=== PATIENT | female | born 1980 | race Caucasian/White ===

== ENCOUNTER 2019-07-10 11:00 | Emergency (ER) | payer OTHER ==
[2019-07-10 11:26] LABS: BILIRUBIN,URINE NEGATIVE (NEGATIVE); GLUCOSE, URINE (UA) NEGATIVE (NEGATIVE); KETONES,URINE (UA) NEGATIVE (NEGATIVE); LEUKOCYTE ESTERASE, URINE SMALL (NEGATIVE); NITRITE,URINE POSITIVE (NEGATIVE); OCCULT BLOOD,URINE SMALL (NEGATIVE); PH,URINE 6.5 PH (5.0-7.5); PROTEIN,URINE NEGATIVE (NEGATIVE); UROBILINOGEN,URINE 0.2 (NORMAL) E.U./dL (NORMAL)
[2019-07-10 11:28] LABS: CLARITY,URINE HAZY (CLEAR)
[2019-07-10 11:29] LABS: HCG UR QUAL NEGATIVE
[2019-07-10 11:34] LABS: BACTERIA,URINE Few /HPF (None Seen); RBC,URINE 0-5 /HPF (0-5); SQUAMOUS EPITHELIAL CELL,UR MANY Squamous (<= Few)
[2019-07-10] MEDS ORDERED: LIDOCAINE 1% 2 ML VIAL MC ONE (12:28)
[2019-07-10] MEDS ORDERED: cefTRIAXone 1 GM VIAL IM STA (12:28)
[2019-07-10] MEDS ORDERED: HYDROcod/ACETAM 5/325 MG TABLET PO STA (12:28)
--- NOTE | 2019-07-10 12:30 | ED Physician Documentation ---
PD HPI BACK PAIN - Stated complaint Stated Complaint: FEMALE - Chief complaint Chief Complaint: UTI - History obtained from History obtained from: Patient (About a week now she has had symptoms of UTI with frequency and dysuria which over the last couple of days have become more significant with pain radiating to the back and a fever to 100. No nausea or flank pain specifically. She does have frequent UTIs which usually treats at home with fluids and cranberry juice.) Review of Systems Constitutional: reports: Fever, Chills GI: reports: Abdominal Pain. 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 : None HEENT: None Psych: None Musculoskeletal: None Derm: None - Past Surgical History Past Surgical History: No - Present Medications Home Medications: Ambulatory Orders Medication Instructions Recorded Confirmed Cefdinir 300 mg PO BID #20 capsule 07/10/19 Hydrocodone/Acetaminophen 1 - 2 each PO Q6H PRN #10 tablet 07/10/19 [Hydrocodon-Acetaminophen 5-325] - Allergies Allergies/Adverse Reactions: Allergies Allergy/AdvReac Type Severity Reaction Status Date / Time No Known Drug Allergies Allergy Verified 07/10/19 11:14 - Social History Does the pt smoke?: No Smoking Status: Former smoker Does the pt drink ETOH?: No - Immunizations Immunizations are current?: No - POLST Patient has POLST: No PD ED PE NORMAL - Vitals Vital signs reviewed: Yes - General General: Alert and oriented X 3, No acute distress - HEENT HEENT: PERRL, EOMI - Neck Neck: Supple, no meningeal sign, No bony TTP - Cardiac Cardiac: RRR, No murmur - Respiratory Respiratory: No respiratory distress, Clear bilaterally - Abdomen Abdomen: Soft, Other (mild pelciv) - Back Back: No CVA TTP, No spinal TTP - Derm Derm: No rash - Neuro Neuro: Alert and oriented X 3, Normal speech Results - Vitals Vitals: Vital Signs - 24 hr 07/10/19 07/10/19 11:11 13:10 Temperature 37.3 C Heart Rate 109 H 119 H Respiratory 16 18 Rate Blood Pressure 135/79 H 127/89 H O2 Saturation 98 98 Oxygen O2 Source Room air - Labs Labs: Laboratory Tests 07/10/19 07/10/19 07/10/19 11:17 11:17 12:40 Urine Color YELLOW LT. YELLOW Urine Clarity HAZY CLEAR Urine pH 6.5 6.0 Ur Specific [place] 1.010 1.010 1.015 Urine Protein NEGATIVE NEGATIVE Urine Glucose (UA) NEGATIVE NEGATIVE Urine Ketones NEGATIVE NEGATIVE Urine Occult Blood SMALL H SMALL H Urine Nitrite POSITIVE H POSITIVE H Urine Bilirubin NEGATIVE NEGATIVE Urine Urobilinogen 0.2 (NORMAL) 0.2 (NORMAL) Ur Leukocyte Esterase SMALL H TRACE H Urine RBC 0-5 0-5 Urine WBC 6-10 H 0-3 Ur Squamous Epith Cells MANY Squamous H FEW Squamous Urine Bacteria Few Few Ur Microscopic Review INDICATED INDICATED Urine Culture Comments NOT INDICATED INDICATED Urine HCG, Qual NEGATIVE PD MEDICAL DECISION MAKING - ED course ED course: Initial urinalysis was contaminated and repeat sample was collected for culture with advice on clean-catch technique,. She was administered Rocephin IM for pyelonephritis, despite lack of flank pain or tenderness the fever would mandate broader spectrum coverage then say Macrobid. Departure - Departure Disposition: 01 Home, Self Care Clinical Impression: Pyelonephritis Condition: Good Record reviewed to determine appropriate education?: Yes Instructions: Pyelonephritis Dc Prescriptions: Cefdinir 300 mg PO BID #20 capsule Hydrocodone/Acetaminophen [Hydrocodon-Acetaminophen 5-325] 1 - 2 each PO Q6H PRN #10 tablet PRN Reason: pain Comments: We will culture your urine, the results should be done in 48-72 hours. If an antibiotic change is necessary we will call you. Return if worse in the meantime, especially if you develop increasing flank pain, high fevers, or cannot keep down the medication. Discharge Date/Time: 07/10/19 13:25
[2019-07-10 12:47] LABS: BILIRUBIN,URINE NEGATIVE (NEGATIVE); GLUCOSE, URINE (UA) NEGATIVE (NEGATIVE); KETONES,URINE (UA) NEGATIVE (NEGATIVE); LEUKOCYTE ESTERASE, URINE TRACE (NEGATIVE); NITRITE,URINE POSITIVE (NEGATIVE); OCCULT BLOOD,URINE SMALL (NEGATIVE); PROTEIN,URINE NEGATIVE (NEGATIVE); UROBILINOGEN,URINE 0.2 (NORMAL) E.U./dL (NORMAL)
[2019-07-10 12:49] LABS: CLARITY,URINE CLEAR (CLEAR)
[2019-07-10 12:59] LABS: BACTERIA,URINE Few /HPF (None Seen); RBC,URINE 0-5 /HPF (0-5); SQUAMOUS EPITHELIAL CELL,UR FEW Squamous (<= Few)
[2019-07-10 13:11] VITALS: BP 127/89
== END 2019-07-10 13:25 | disposition home or self-care (01) ==
LOC: ED 11:00
DX: N12 Tubulo-interstitial nephritis, not specified as acute or chronic (principal); Z87.891 Personal history of nicotine dependence
CPT/HCPCS: 81001; 81025; 87086; 87181; 96372; 99283; 99284; A9270; 81003